=== PATIENT | female | born 1985 | race American Indian/Alaskan Native ===

== ENCOUNTER 2016-11-19 05:15 | Emergency (ER) | payer MEDICAID, OTHER ==
[2016-11-19 05:24] VITALS: BP 119/76
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
[2016-11-19] MEDS ORDERED: Acetaminophen/HYDROcodone 325-10 MG Tab PO ONE (05:52)
== END 2016-11-19 07:18 | disposition home or self-care (01) ==
LOC: DL.ED 05:15
DX: S00.33XA Contusion of nose, initial encounter (principal); S60.221A Contusion of right hand, initial encounter; Z88.1 Allergy status to other antibiotic agents; Z88.0 Allergy status to penicillin; Y04.0XXA Assault by unarmed brawl or fight, initial encounter
CPT/HCPCS: 70160; 73130; 80305; 81001; 81025; 99284; A9270

== ENCOUNTER 2016-11-20 17:33 | Emergency (ER) | payer MEDICAID, OTHER ==
[2016-11-20 17:29] VITALS: BP 131/87
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
[2016-11-20] MEDS ORDERED: Acetaminophen/HYDROcodone 325-10 MG Tab PO ONE (18:00)
== END 2016-11-20 18:44 | disposition home or self-care (01) ==
LOC: DL.ED 17:33
DX: S02.2XXD Fracture of nasal bones, subsequent encounter for fracture with routine healing (principal); Z88.0 Allergy status to penicillin; Z88.1 Allergy status to other antibiotic agents; Y04.0XXD Assault by unarmed brawl or fight, subsequent encounter
CPT/HCPCS: 70450; 70486; 99284; A9270

== ENCOUNTER 2017-01-01 17:30 | Emergency (ER) | payer MEDICAID, OTHER ==
[2017-01-01 17:56] VITALS: BP 115/70
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
== END 2017-01-01 19:01 ==
LOC: DL.ED 17:30
DX: S00.33XA Contusion of nose, initial encounter (principal); Z88.1 Allergy status to other antibiotic agents; Z88.0 Allergy status to penicillin; W21.05XA Struck by basketball, initial encounter; Y93.67 Activity, basketball
CPT/HCPCS: 70160; 99283

== ENCOUNTER 2017-01-19 18:42 | Emergency (ER) | payer MEDICAID, OTHER ==
[2017-01-19 19:56] VITALS: BP 115/88
[2017-01-19] MEDS ORDERED: Clindamycin HCl 150 MG Cap PO ONE (20:05)
[2017-01-19] MEDS ORDERED: Acetaminophen/HYDROcodone 325-10 MG Tab PO ONE (20:05)
--- NOTE | 2017-01-19 20:10 | EDM.PDOC ---
ED HPI GENERAL MEDICAL PROBLEM - General Chief Complaint: ENT Problem Stated Complaint: DENTAL PAIN Time Seen by Provider: 01/19/17 20:06 Source of Information: Reports: Patient History Limitations: Reports: No Limitations - History of Present Illness INITIAL COMMENTS - FREE TEXT/NARRATIVE: chipped tooth last week went to [facility] told to return Saturday Tooth/Teeth Pain Score (Numeric/FACES): 8 - Related Data Allergies Allergy/AdvReac Type Severity Reaction Status Date / Time amoxicillin trihydrate Allergy Rash Verified 01/19/17 19:59 [From Augmentin] cephalexin [Cephalexin] Allergy Rash Verified 01/19/17 19:59 erythromycin base Allergy Rash Verified 01/19/17 19:59 [Erythromycin Base] potassium clavulanate Allergy Rash Verified 01/19/17 19:59 [From Augmentin] pencillin Allergy Nausea Uncoded 01/19/17 19:59 Home Meds: Home Meds Ibuprofen [Motrin] 800 mg PO Q6H 01/01/17 [History] Past Medical History - Past Health History Medical/Surgical History: Denies 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, Other OB/BYN History: 5 - cs - Infectious Disease History Infectious Disease History: Reports: Chicken Pox Social & Family History - Family History Family Medical History: Noncontributory - Tobacco Use Smoking Status *Q: Never Smoker Years of Tobacco use: 16 Packs/Tins Daily: 0.1 Used Tobacco, but Quit: No Month Tobacco Last Used: Aug Second Hand Smoke Exposure: Yes - Caffeine Use Caffeine Use: Reports: Soda - Alcohol Use Days Per Week of Alcohol Use: 0 - Recreational Drug Use Recreational Drug Use: No - Living Situation & Occupation Living situation: Reports: , with Family ED ROS ENT - Review of Systems Review Of Systems: ROS reveals no pertinent complaints other than HPI. ED EXAM, ENT - Physical Exam Exam: See Below Exam Limited By: No Limitations General Appearance: Alert, WD/WN, Mild Distress, Other (crying) Ears: Hearing Grossly Normal Mouth/Throat: Normal Inspection, Normal Oropharynx, Dental Pain, Dental Tenderness, Dental Trauma, Other (chipped right upper 1st molar) Head: Atraumatic Neck: Non-Tender, Full Range of Motion Respiratory/Chest: No Respiratory Distress Cardiovascular: Regular Rate, Rhythm GI/Abdominal: Soft, Non-Tender Neurological: Alert, Oriented, Normal Cognition, Normal Gait, No Motor/Sensory Deficits Psychiatric: Tearful Skin: Warm, Dry Lymphatic: No Adenopathy Course - Vital Signs Last Recorded V/S: Last Vital Signs Temp 36.6 C 01/19/17 19:55 Pulse 54 L 01/19/17 19:55 Resp 16 01/19/17 19:55 BP 115/88 01/19/17 19:55 Pulse Ox 100 01/19/17 19:55 - Orders/Labs/Meds Meds: Medications Discontinued Medications Generic Name Dose Route Start Last Admin Trade Name Freq PRN Reason Stop Dose Admin Hydrocodone Bitart/Acetaminophen 1 tab 01/19/17 20:05 01/19/17 20:09 [place] 325-10 Mg PO 01/19/17 20:06 1 tab ONETIME ONE Administration Clindamycin HCl 150 mg 01/19/17 20:05 01/19/17 20:09 [place] PO 01/19/17 20:06 150 mg ONETIME ONE Administration - Re-Assessments/Exams Free Text/Narrative Re-Assessment/Exam: 01/19/17 21:11 Pt observed without c/o itch or rash. Departure - Departure Time of Disposition: 21:12 Disposition: Home, Self-Care 01 Condition: Good Clinical Impression: Dental abscess Fracture of tooth Qualifiers: Encounter type: initial encounter Fracture type: closed Qualified Code(s): S02.5XXA - Fracture of tooth (traumatic), initial encounter for closed fracture - Discharge Information Instructions: Dental Caries, [id number] Forms: ED Department Discharge Additional Instructions: 1) avoid solid foods 2) see dentist Saturday rx given; clindamycin 150mg qid x 40 vicodin 5/325mg bid prn x 12
== END 2017-01-19 21:10 | disposition home or self-care (01) ==
LOC: DL.ED 18:42
DX: S02.5XXA Fracture of tooth (traumatic), initial encounter for closed fracture (principal); K04.7 Periapical abscess without sinus; Z88.0 Allergy status to penicillin; Z88.1 Allergy status to other antibiotic agents
CPT/HCPCS: 99283; A9270

== ENCOUNTER 2017-11-01 19:24 | Emergency (ER) | payer MEDICAID, OTHER ==
[2017-11-01 19:30] VITALS: BP 117/82
--- NOTE | 2017-11-01 19:45 | EDM.PDOC ---
ED HPI GENERAL MEDICAL PROBLEM - General Chief Complaint: Wound Recheck Stated Complaint: [id number] might have torn incision from c section Time Seen by Provider: 11/01/17 19:39 Source of Information: Reports: Patient History Limitations: Reports: No Limitations - History of Present Illness INITIAL COMMENTS - FREE TEXT/NARRATIVE: states been having low abd pain at area of incision all day. thinks she might have torn something due to some small vag bleeding earlier and did have small amount coming out of incision site. appetite normal. sharp on off abd pain. none right now. Left Lower Abdomen Pain Score (Numeric/FACES): 7 - Related Data Allergies Allergy/AdvReac Type Severity Reaction Status Date / Time amoxicillin trihydrate Allergy Rash Verified 11/01/17 19:30 [From Augmentin] cephalexin [Cephalexin] Allergy Rash Verified 11/01/17 19:30 erythromycin base Allergy Rash Verified 11/01/17 19:30 [Erythromycin Base] potassium clavulanate Allergy Rash Verified 11/01/17 19:30 [From Augmentin] pencillin Allergy Nausea Uncoded 11/01/17 19:30 Home Meds: Home Meds . [No Known Home Meds] 08/22/17 [History] Past Medical History - Past Health History Medical/Surgical History: Denies Medical/Surgical History HEENT History: Reports: None Cardiovascular History: Reports: Other (See Below) Other Cardiovascular History: preeclampsia Respiratory History: Reports: None Gastrointestinal History: Reports: None Genitourinary History: Reports: None [employer] History: Reports: Endometriosis, , Spontaneous Other OB/BYN History: 4 sections Musculoskeletal History: Reports: None Neurological History: Reports: None Psychiatric History: Reports: None Endocrine/Metabolic History: Reports: Hypothyroidism Hematologic History: Reports: Anemia Immunologic History: Reports: None Oncologic (Cancer) History: Reports: None Dermatologic History: Reports: None - Infectious Disease History Infectious Disease History: Reports: None - Past Surgical History Head Surgeries/Procedures: Reports: None Female Surgical History: Reports: Section Social & Family History - Family History Family Medical History: Noncontributory - Tobacco Use Smoking Status *Q: Never Smoker Years of Tobacco use: 5 Packs/Tins Daily: 0.2 Used Tobacco, but Quit: Yes Month/Year Tobacco Last Used: 05 Second Hand Smoke Exposure: No - Caffeine Use Caffeine Use: Reports: Coffee, Soda - Alcohol Use Days Per Week of Alcohol Use: 0 - Recreational Drug Use Recreational Drug Use: No Other Recreational Drug Type: pt denied drug use but pause before she would answer question - Living Situation & Occupation Living situation: Reports: , with Family ED ROS GENERAL - Review of Systems Review Of Systems: ROS reveals no pertinent complaints other than HPI. ED EXAM, SKIN/RASH Exam: See Below Exam Limited By: No Limitations General Appearance: Alert, WD/WN, Mild Distress, Other (upset) Ears: Hearing Grossly Normal Throat/Mouth: Normal Voice, No Airway Compromise Head: Atraumatic Neck: Non-Tender, Full Range of Motion Respiratory/Chest: No Respiratory Distress Cardiovascular: Regular Rate, Rhythm GI/Abdominal: Tender, Other (miild tnederness LLQ region, incision without s/s cellulitis no active bleeding no discharge, BS hyper). No: Distended, Guarding , Rigid, Rebound Neurological: Alert, Oriented, Normal Cognition, Normal Gait, No Motor/Sensory Deficits Psychiatric: Flat Affect Skin: Warm, Dry, Normal Color Location, Skin: Abdomen Lymphatic: No Adenopathy Course - Vital Signs Last Recorded V/S: Last Vital Signs Temp 37.3 C 11/01/17 19:26 Pulse 60 11/01/17 19:26 Resp 18 11/01/17 19:26 BP 117/82 11/01/17 19:26 Pulse Ox 97 11/01/17 19:26 - Orders/Labs/Meds Orders: Active Orders 24 hr Category Date Time Status Acetaminophen/HYDROcodone [Trilla 325-10 MG] Med 11/01/17 22:24 Once 1 tab PO ONETIME ONE Labs: Laboratory Tests 11/01/17 11/01/17 11/01/17 Range/Units 19:48 19:48 19:48 WBC 7.0 (5.0-10.0) 10^3/uL RBC 4.11 L (4.2-5.4) 10^6/uL Hgb 11.0 L (12.0-16.0) g/dL Hct 36.0 L (37.0-47.0) % MCV 87.6 (80-100) fL MCH 26.8 L (27.0-34.0) pg MCHC 30.6 L (33.0-35.0) g/dL Plt Count 362 D (150-450) 10^3/uL Neut % (Auto) 68.4 (42.2-75.2) % Lymph % (Auto) 21.4 (20.5-50.1) % Emmons % (Auto) 5.8 (2-8) % Eos % (Auto) 4.0 H (1.0-3.0) % Baso % (Auto) 0.4 (0.0-1.0) % Sodium 138 (135-145) mmol/L Potassium 4.1 (3.6-5.0) mmol/L Chloride 108 (101-111) mmol/L Carbon Dioxide 24.0 (21.0-31.0) mmol/L Anion Gap 10.1 BUN 16 (7-18) mg/dL Creatinine 0.6 (0.6-1.3) mg/dL Est Cr Clr Drug Dosing 104.49 mL/min Estimated GFR (MDRD) > 60 BUN/Creatinine Ratio 26.66 Glucose 95 (74-105) mg/dL Lactic Acid 0.4 L (0.5-2.2) mmol/L Calcium 8.5 (8.4-10.2) mg/dl Total Bilirubin 0.3 (0.2-1.0) mg/dL AST 19 (10-42) IU/L ALT 20 (10-60) IU/L Alkaline Phosphatase 80 (42-121) IU/L Total Protein 7.1 (6.7-8.2) g/dl Albumin 3.2 (3.2-5.5) g/dl Globulin 3.9 Albumin/Globulin Ratio 0.82 Urine Color (YELLOW) Urine Appearance (CLEAR) Urine pH (5.0-9.0) Ur Specific Monroe (1.005-1.030) Urine Protein (NEGATIVE) Urine Glucose (UA) (NEGATIVE) Urine Ketones (NEGATIVE) Urine Occult Blood (NEGATIVE) Urine Nitrite (NEGATIVE) Urine Bilirubin (NEGATIVE) Urine Urobilinogen (0.2-1.0) mg/dL Ur Leukocyte Esterase (NEGATIVE) Urine RBC /HPF Urine WBC (0-5/HPF) /HPF Ur Epithelial Cells /HPF Amorphous Sediment (0/HPF) /HPF Urine Bacteria (0-FEW/HPF) /HPF Urine Mucus /LPF 11/01/17 Range/Units 21:25 WBC (5.0-10.0) 10^3/uL RBC (4.2-5.4) 10^6/uL Hgb (12.0-16.0) g/dL Hct (37.0-47.0) % MCV (80-100) fL MCH (27.0-34.0) pg MCHC (33.0-35.0) g/dL Plt Count (150-450) 10^3/uL Neut % (Auto) (42.2-75.2) % Lymph % (Auto) (20.5-50.1) % Emmons % (Auto) (2-8) % Eos % (Auto) (1.0-3.0) % Baso % (Auto) (0.0-1.0) % Sodium (135-145) mmol/L Potassium (3.6-5.0) mmol/L Chloride (101-111) mmol/L Carbon Dioxide (21.0-31.0) mmol/L Anion Gap BUN (7-18) mg/dL Creatinine (0.6-1.3) mg/dL Est Cr Clr Drug Dosing mL/min Estimated GFR (MDRD) BUN/Creatinine Ratio Glucose (74-105) mg/dL Lactic Acid (0.5-2.2) mmol/L Calcium (8.4-10.2) mg/dl Total Bilirubin (0.2-1.0) mg/dL AST (10-42) IU/L ALT (10-60) IU/L Alkaline Phosphatase (42-121) IU/L Total Protein (6.7-8.2) g/dl Albumin (3.2-5.5) g/dl Globulin Albumin/Globulin Ratio Urine Color Yellow (YELLOW) Urine Appearance Slightly cloudy (CLEAR) Urine pH 7.0 (5.0-9.0) Ur Specific Monroe 1.020 (1.005-1.030) Urine Protein Negative (NEGATIVE) Urine Glucose (UA) Negative (NEGATIVE) Urine Ketones Negative (NEGATIVE) Urine Occult Blood Large H (NEGATIVE) Urine Nitrite Negative (NEGATIVE) Urine Bilirubin Negative (NEGATIVE) Urine Urobilinogen 0.2 (0.2-1.0) mg/dL Ur Leukocyte Esterase Trace H (NEGATIVE) Urine RBC 40-50 H /HPF Urine WBC 0-5 (0-5/HPF) /HPF Ur Epithelial Cells Few /HPF Amorphous Sediment Rare (0/HPF) /HPF Urine Bacteria Few (0-FEW/HPF) /HPF Urine Mucus Rare /LPF - Re-Assessments/Exams Free Text/Narrative Re-Assessment/Exam: 11/01/17 22:26 results discussed with pt. Departure - Departure Time of Disposition: 22:26 Disposition: Home, Self-Care 01 Condition: Good Clinical Impression: Postoperative abdominal pain Abdominal pain Qualifiers: Abdominal location: lower abdomen, unspecified Qualified Code(s): R10.30 - Lower abdominal pain, unspecified - Discharge Information Instructions: Stitches, Edward, or Adhesive Wound Closure, [id number] Forms: ED Department Discharge Additional Instructions: 1) rest and avoid bending lifting straining 2) follow up with Dr Marshall Saturday or recheck as needed rx given; vicodin 5/325mg bid prn x 6 - My Orders Last 24 Hours: My Active Orders 11/01/17 22:24 Acetaminophen/HYDROcodone [Trilla 325-10 MG] 1 tab PO ONETIME ONE - Assessment/Plan Last 24 Hours: My Active Orders 11/01/17 22:24 Acetaminophen/HYDROcodone [Trilla 325-10 MG] 1 tab PO ONETIME ONE
[2017-11-01 20:13] LABS: CHLORIDE,CL 108 mmol/L (101-111); SODIUM,NA 138 mmol/L (135-145)
[2017-11-01] MEDS ORDERED: Acetaminophen/HYDROcodone 325-10 MG Tab PO ONE (22:24)
== END 2017-11-01 22:34 | disposition home or self-care (01) ==
LOC: DL.ED 19:24
DX: G89.18 Other acute postprocedural pain (principal); R10.32 Left lower quadrant pain; E03.9 Hypothyroidism, unspecified; Z88.1 Allergy status to other antibiotic agents; Z88.0 Allergy status to penicillin; Z87.891 Personal history of nicotine dependence
CPT/HCPCS: 36415; 80053; 81001; 83605; 85025; 99283; A9270

== ENCOUNTER 2020-03-19 12:47 | Emergency (ER) | payer MEDICAID, OTHER ==
[2020-03-19 12:54] VITALS: BP 139/96; PULSE 74
--- NOTE | 2020-03-19 13:43 | EDM.PDOC ---
ED HPI GENERAL MEDICAL PROBLEM - General Chief Complaint: ENT Problem Stated Complaint: [id number] INFECTION FROM WISDOM TEETH OUT. EAR/JAW P Time Seen by Provider: 03/19/20 13:38 Source of Information: Reports: Patient History Limitations: Reports: No Limitations - History of Present Illness INITIAL COMMENTS - FREE TEXT/NARRATIVE: Patient presenting with left dental/jaw pain that started last week. It's getting worse. Pain is worse after eating. Alleviated by taking tylenol/ ibuprofen. She has tried to see a dentist but couldn't get in. She denies fever, chills, nausea, vomiting, chest pain, shortness of breath, ear ache, swelling or erythema of the left jaw. 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 Left Upper Jaw Pain Score (Numeric/FACES): 7 - Related Data Allergies Allergy/AdvReac Type Severity Reaction Status Date / Time amoxicillin trihydrate Allergy Rash Verified 03/19/20 12:56 [From Augmentin] cephalexin [Cephalexin] Allergy Rash Verified 03/19/20 12:56 erythromycin base Allergy Rash Verified 03/19/20 12:56 [Erythromycin Base] potassium clavulanate Allergy Rash Verified 03/19/20 12:56 [From Augmentin] pencillin Allergy Nausea Uncoded 03/19/20 12:56 Home Meds: Home Meds Acetaminophen [Tylenol] 650 mg PO ASDIRECTED 03/19/20 [History] Ibuprofen 400 mg PO ASDIRECTED 03/19/20 [History] Past Medical History - Past Health History Medical/Surgical History: Denies Medical/Surgical History HEENT History: Reports: None Cardiovascular History: Reports: Other (See Below) Other Cardiovascular History: preeclampsia Respiratory History: Reports: None Gastrointestinal History: Reports: None Genitourinary History: Reports: None [employer] History: Reports: Endometriosis, , Spontaneous Other [employer] History: 4 sections Musculoskeletal History: Reports: None Neurological History: Reports: None Psychiatric History: Reports: None Endocrine/Metabolic History: Reports: Hypothyroidism Hematologic History: Reports: Anemia Immunologic History: Reports: None Oncologic (Cancer) History: Reports: None Dermatologic History: Reports: None - Infectious Disease History Infectious Disease History: Reports: None - Past Surgical History Head Surgeries/Procedures: Reports: None Female Surgical History: Reports: Section Social & Family History - Family History Family Medical History: Noncontributory - Tobacco Use Smoking Status *Q: Light Tobacco Smoker Years of Tobacco use: 20 Packs/Tins Daily: 0.1 - Caffeine Use Caffeine Use: Reports: Soda - Recreational Drug Use Recreational Drug Use: No - Living Situation & Occupation Living situation: Reports: , with Family ED ROS ENT - Review of Systems Review Of Systems: See Below HEENT: Reports: Dental Pain. Denies: Ear Pain ED EXAM, ENT - Physical Exam Exam: See Below Exam Limited By: No Limitations General Appearance: Alert, WD/WN, No Apparent Distress Ears: Normal External Exam, Normal Canal, Hearing Grossly Normal, Normal TMs Nose: Normal Inspection, Normal Mucousa, No Blood Mouth/Throat: Dental Pain, Dental Tenderness (TTP on the left upper molar), Other (Poor dentition) Head: Atraumatic, Normocephalic Neck: Normal Inspection, Supple, Non-Tender, Full Range of Motion Respiratory/Chest: No Respiratory Distress, Lungs Clear, Normal Breath Sounds, No Accessory Muscle Use, Chest Non-Tender Cardiovascular: Normal Peripheral Pulses, Regular Rate, Rhythm, No Edema, No Gallop, No JVD, No Murmur, No Rub GI/Abdominal: Normal Bowel Sounds, Soft, Non-Tender, No Organomegaly, No Distention, No Abnormal Bruit, No Mass (Female) Exam: Normal External Exam, Normal Speculum Exam, Normal Bimanual Exam Rectal (Female) Exam: Deferred Back: Normal Inspection, Full Range of Motion Extremities: Normal Inspection, Normal Range of Motion, Non-Tender, No Pedal Edema, Normal Capillary Refill Course - Vital Signs Last Recorded V/S: Last Vital Signs Temp 98.4 F 03/19/20 12:52 Pulse 74 03/19/20 12:52 Resp 16 03/19/20 12:52 BP 139/96 H 03/19/20 12:52 Pulse Ox 99 03/19/20 12:52 - Orders/Labs/Meds Meds: Medications Discontinued Medications Generic Name Dose Route Start Last Admin Trade Name Freq PRN Reason Stop Dose Admin Clindamycin HCl 600 mg 03/19/20 14:02 Cleocin PO 03/19/20 14:03 ONETIME ONE Departure - Departure Time of Disposition: 14:14 Disposition: Home, Self-Care 01 Condition: Good Clinical Impression: Pain, dental - Discharge Information Forms: ED Department Discharge Sepsis Event Note (ED) - Evaluation Sepsis Screening Result: No Definite Risk - Focused Exam Vital Signs: Vital Signs Temp Pulse Resp BP Pulse Ox 03/19/20 12:52 98.4 F 74 16 139/96 H 99
[2020-03-19] MEDS ORDERED: Clindamycin HCl 150 MG Cap PO ONE (14:02)
== END 2020-03-19 14:13 | disposition home or self-care (01) ==
LOC: DL.ED 12:47
DX: K08.89 Other specified disorders of teeth and supporting structures (principal); F17.210 Nicotine dependence, cigarettes, uncomplicated; Z88.1 Allergy status to other antibiotic agents; Z88.0 Allergy status to penicillin
CPT/HCPCS: 99282

== ENCOUNTER 2022-04-10 15:50 | Emergency (ER) | payer OTHER | END 2022-04-10 17:37 | disposition left against medical advice (07) | LOC: DL.ED 15:50 | DX: Z53.21 Procedure and treatment not carried out due to patient leaving prior to being seen by health care provider (principal) ==

== ENCOUNTER 2022-07-22 11:29 | Emergency (ER) | payer SELFPAY | END 2022-07-22 13:33 | disposition left against medical advice (07) | LOC: DL.ED 11:29 | DX: Z53.21 Procedure and treatment not carried out due to patient leaving prior to being seen by health care provider (principal) ==

== ENCOUNTER 2022-10-16 01:35 | Emergency (ER) | payer SELFPAY ==
[2022-10-16] MEDS ORDERED: Sodium Chloride 0.9% 10 ML Syringe FLUSH PRN (01:54)
[2022-10-16] MEDS ORDERED: Ondansetron 4 MG/2 ML SDV IVPUSH ONE (01:54)
[2022-10-16 02:31] VITALS: PULSE 88
[2022-10-16 02:39] LABS: ANION GAP 14.5 mEq/L (7-13); CHLORIDE,CL 103 mmol/L (98-107); SODIUM,NA 140 mmol/L (136-145)
[2022-10-16 02:40] LABS: ESTIMATED GFR 94 mL/min (>=60)
[2022-10-16] MEDS ORDERED: Sodium Chloride 0.9% 1,000 ML IV ONE (02:46)
[2022-10-16] MEDS ORDERED: Metoclopramide 10 MG/2 ML SDV IVPUSH ONE (02:49)
== END 2022-10-16 04:22 | disposition home or self-care (01) ==
LOC: DL.ED 01:35
DX: R07.89 Other chest pain (principal); R11.2 Nausea with vomiting, unspecified; Z88.0 Allergy status to penicillin; Z88.1 Allergy status to other antibiotic agents
CPT/HCPCS: 36415; 71045; 80053; 81001; 82150; 83605; 83690; 83735; 84145; 84484; 85025; 85610; 85730; 93005; 93010; 96361; 96374; 96375; 99284; 99285-25; J2405; J2765; J3490; J7030

== ENCOUNTER 2023-12-19 20:01 | Emergency (ER) | payer SELFPAY ==
[2023-12-19 20:06] VITALS: BP 125/88; PULSE 83
[2023-12-19 20:24] LABS: BASOPHILS PERCENT AUTO 0.4 % (0.0-1.0); HEMATOCRIT 40.8 % (37.0-47.0); HEMOGLOBIN 13.4 g/dL (12.0-16.0); LYMPHOCYTES PERCENT AUTO 25.1 % (20.5-50.1); MEAN CORPUSCULAR HEMOGLOBIN 28.8 pg (27.0-34.0); MEAN CORPUSCULAR HGB CONC 32.8 g/dL (33.0-35.0); MEAN CORPUSCULAR VOLUME 87.6 fL (80-100); MONOCYTES PERCENT AUTO 6.9 % (2-8); NEUTROPHILS PERCENT AUTO 66.6 % (42.2-75.2); PLATELET COUNT,PLT 282 10^3/uL (150-450); RED BLOOD CELL COUNT 4.66 10^6/uL (4.2-5.4); WHITE BLOOD CELL COUNT,WBC 7.1 10^3/uL (5.0-10.0)
[2023-12-19] MEDS: Sodium Chloride 0.9% 1,000 ML IV ONE ×2 (20:24→21:55)
[2023-12-19] MEDS: Ondansetron 4 MG/2 ML SDV IVPUSH ONE (20:24)
[2023-12-19] MEDS: Morphine 2 MG/ML SYRINGE IVPUSH ONE ×2 (20:26→21:55)
[2023-12-19] MEDS: Iopamidol 612 MG/ML 100 ML Bottle IVPUSH ONE (20:40)
[2023-12-19 20:42] LABS: HCG QUALITATIVE,SERUM NEGATIVE (NEGATIVE)
[2023-12-19 20:46] LABS: LACTIC ACID 0.9 mmol/L (0.4-2.0)
[2023-12-19 20:53] LABS: A/G RATIO 0.9; ALANINE AMINOTRANSFERASE,ALT 18 U/L (14-59); ALBUMIN 3.9 g/dL (3.4-5.0); ALKALINE PHOSPHATASE 70 U/L (46-116); ANION GAP 15.2 mEq/L (7-13); ASPARTATE AMNIOTRANSFERASE,AST 14 U/L (15-37); BILIRUBIN TOTAL 0.6 mg/dL (0.2-1.0); BLOOD UREA NITROGEN,BUN 9 mg/dL (7-18); BUN/CREATININE RATIO 11.1 (No establ ref range); CALCIUM 8.8 mg/dL (8.5-10.1); CARBON DIOXIDE,CO2 24 mmol/L (21-32); CHLORIDE,CL 105 mmol/L (98-107); CREATININE 0.81 mg/dL (0.55-1.02); EST CRCL DRUG DOSING (CG) 76.37 mL/min; GLUCOSE RANDOM 103 mg/dL (70-99); LIPASE 24 U/L (16-77); MAGNESIUM 1.9 mg/dL (1.8-2.4); POTASSIUM,K 4.2 mmol/L (3.5-5.1); PROTEIN TOTAL,TP 8.3 g/dL (6.4-8.2); SODIUM,NA 140 mmol/L (136-145)
[2023-12-19 20:54] LABS: ESTIMATED GFR 94 mL/min (>=60)
[2023-12-19 21:42] LABS: APPEARANCE,URINE CLEAR (CLEAR); BILIRUBIN,URINE NEGATIVE (NEGATIVE); COLOR,URINE YELLOW (YELLOW); GLUCOSE,URINE NEGATIVE (NEGATIVE); KETONES,URINE TRACE (NEGATIVE); LEUKOCYTE ESTERASE,URINE NEGATIVE (NEGATIVE); NITRITE,URINE NEGATIVE (NEGATIVE); OCCULT BLOOD,URINE TRACE-LYSED (NEGATIVE); PROTEIN,URINE NEGATIVE (NEGATIVE); UROBILINOGEN,URINE 0.2 mg/dL (0.2-1.0)
[2023-12-19 22:00] LABS: BACTERIA,URINE FEW /HPF (0-FEW/HPF); EPITHELIAL CELLS,URINE FEW /HPF (NOT SEEN); MUCUS,URINE OCCASIONAL /LPF (NOT SEEN); RBC,URINE 0-5 /HPF (0-5); WBC,URINE 0-5 /HPF (0-5/HPF)
== END 2023-12-19 22:17 ==
LOC: DL.ED 20:01
DX: N83.291 Other ovarian cyst, right side (principal); E86.9 Volume depletion, unspecified; R10.813 Right lower quadrant abdominal tenderness; R10.814 Left lower quadrant abdominal tenderness; E03.9 Hypothyroidism, unspecified; F17.200 Nicotine dependence, unspecified, uncomplicated; Z88.0 Allergy status to penicillin; Z88.1 Allergy status to other antibiotic agents; Z88.8 Allergy status to other drugs, medicaments and biological substances
CPT/HCPCS: 36415; 74177; 80053; 81001; 83605; 83690; 83735; 84484; 84703; 85025; 93005; 93010; 96361; 96374; 96375; 96376; 99284; 99285; J2270; J2405; J7030; Q9967

== ENCOUNTER 2023-12-31 04:56 | Emergency (ER) | payer MEDICAID ==
[2023-12-31 05:38] VITALS: BP 126/86; PULSE 63
[2023-12-31 06:33] LABS: ALBUMIN 3.3 g/dL (3.4-5.0); ANION GAP 10.3 mEq/L (7-13); BILIRUBIN TOTAL 0.3 mg/dL (0.2-1.0); BUN/CREATININE RATIO 21.1 (No establ ref range); CALCIUM 8.1 mg/dL (8.5-10.1); CREATININE 0.76 mg/dL (0.55-1.02); EST CRCL DRUG DOSING (CG) 81.4 mL/min; POTASSIUM,K 4.3 mmol/L (3.5-5.1); PROTEIN TOTAL,TP 7.4 g/dL (6.4-8.2)
[2023-12-31 06:48] LABS: A/G RATIO 0.8
== END 2023-12-31 08:30 | disposition home or self-care (01) ==
LOC: DL.ED 04:56
DX: N83.8 Other noninflammatory disorders of ovary, fallopian tube and broad ligament (principal); Z88.1 Allergy status to other antibiotic agents; Z88.0 Allergy status to penicillin; Z88.8 Allergy status to other drugs, medicaments and biological substances
CPT/HCPCS: 36415; 80053; 99283; 99285

== ENCOUNTER 2024-01-19 23:11 | Emergency (ER) | payer MEDICAID ==
[2024-01-20 00:11] LABS: APPEARANCE,URINE CLEAR (CLEAR); BILIRUBIN,URINE NEGATIVE (NEGATIVE); COLOR,URINE YELLOW (YELLOW); GLUCOSE,URINE NEGATIVE (NEGATIVE); KETONES,URINE NEGATIVE (NEGATIVE); LEUKOCYTE ESTERASE,URINE NEGATIVE (NEGATIVE); NITRITE,URINE NEGATIVE (NEGATIVE); OCCULT BLOOD,URINE TRACE-INTACT (NEGATIVE); PROTEIN,URINE NEGATIVE (NEGATIVE); UROBILINOGEN,URINE 0.2 mg/dL (0.2-1.0)
[2024-01-20 00:18] LABS: AMORPHOUS SEDIMENT,URINE RARE /HPF (NOT SEEN); BACTERIA,URINE FEW /HPF (0-FEW/HPF); EPITHELIAL CELLS,URINE FEW /HPF (NOT SEEN); MUCUS,URINE RARE /LPF (NOT SEEN); RBC,URINE 0-5 /HPF (0-5); WBC,URINE 0-5 /HPF (0-5/HPF)
[2024-01-20 01:57] LABS: BASOPHILS PERCENT AUTO 0.3 % (0.0-1.0); EOSINOPHILS PERCENT AUTO 2.5 % (1.0-3.0); HEMATOCRIT 38.9 % (37.0-47.0); HEMOGLOBIN 12.6 g/dL (12.0-16.0); LYMPHOCYTES PERCENT AUTO 27.7 % (20.5-50.1); MEAN CORPUSCULAR HEMOGLOBIN 28.6 pg (27.0-34.0); MEAN CORPUSCULAR HGB CONC 32.4 g/dL (33.0-35.0); MEAN CORPUSCULAR VOLUME 88.4 fL (80-100); MONOCYTES PERCENT AUTO 8.9 % (2-8); NEUTROPHILS PERCENT AUTO 60.6 % (42.2-75.2); PLATELET COUNT,PLT 286 10^3/uL (150-450); WHITE BLOOD CELL COUNT,WBC 7.1 10^3/uL (5.0-10.0)
[2024-01-20] MEDS: Ondansetron 4 MG/2 ML SDV IVPUSH ONE ×2 (01:57→10:36)
[2024-01-20] MEDS: Morphine 4 MG/ML Syringe IVPUSH ONE (01:57)
[2024-01-20 02:12] LABS: ANION GAP 13.5 mEq/L (7-13); CALCIUM 8.8 mg/dL (8.5-10.1); CREATININE 0.69 mg/dL (0.55-1.02); EST CRCL DRUG DOSING (CG) 89.65 mL/min; MAGNESIUM 1.8 mg/dL (1.8-2.4); POTASSIUM,K 3.5 mmol/L (3.5-5.1)
[2024-01-20] MEDS: Ondansetron 4 MG in Sodium Chloride 0.9% 50 ML IV ONE (02:13)
[2024-01-20] MEDS: Morphine 2 MG/ML SYRINGE IVPUSH ONE ×3 (02:14→12:21)
[2024-01-20 02:21] LABS: LACTIC ACID 0.9 mmol/L (0.4-2.0)
[2024-01-20 04:35] VITALS: BP 114/83
[2024-01-20 05:48] VITALS: PULSE 62
[2024-01-20] MEDS: Iopamidol 612 MG/ML 100 ML Bottle IVPUSH ONE (09:41)
== END 2024-01-20 12:46 | disposition home or self-care (01) ==
LOC: DL.ED 23:11
DX: R10.2 Pelvic and perineal pain (principal); Z87.891 Personal history of nicotine dependence; Z88.0 Allergy status to penicillin; Z88.1 Allergy status to other antibiotic agents; Z88.8 Allergy status to other drugs, medicaments and biological substances
CPT/HCPCS: 36415; 71046; 74021; 74177; 76856; 80048; 81001; 81025; 83605; 83735; 85025; 99284; J2270; J2405; J3490; Q9967; 96374; 96375; 96376

== ENCOUNTER 2025-02-17 01:23 | Emergency (ER) | payer MEDICAID ==
[2025-02-17 01:43] VITALS: BP 100/66; PULSE 80
[2025-02-17] MEDS: Take Home: Ondansetron 4 MG Tab.DIS, 5 Tab Pack PO ONE (02:14)
== END 2025-02-17 02:15 | disposition home or self-care (01) ==
LOC: DL.ED 01:23
DX: R51.9 Headache, unspecified (principal); F17.200 Nicotine dependence, unspecified, uncomplicated; Z88.1 Allergy status to other antibiotic agents; Z88.8 Allergy status to other drugs, medicaments and biological substances; Z88.0 Allergy status to penicillin
CPT/HCPCS: 99283; Q0162